=== PATIENT | female | born 1960 | race African-American/Black ===

== ENCOUNTER → 2017-04-02 10:27 | Outpatient (CLI) | payer MEDICARE, MEDICAID | END | disposition home or self-care (01) | LOC: D.MRI 10:27 | DX: M25.511 Pain in right shoulder (principal); M79.601 Pain in right arm ==

== ENCOUNTER → 2020-11-06 11:05 | Outpatient (CLI) | payer MEDICARE, MEDICAID ==
--- NOTE | 2020-11-06 14:41 | NUR ---
PATIENT GIVEN 10 ML MULTIHANCE FOR MRI LUMBAR SPINE W/WO CONTRAST. AFTER SCAN WAS COMPLETE WE ASKED PATIENT IF SHE WAS FEELING OK. SHE STATED YES AND IV WAS REMOVED. SHE THEN ASKED IF HER RT EYE LOOKED SWOLLEN BECAUSE IT FELT LIKE IT WAS EVER SINCE WE GAVE HER THE CONTRAST. WE THEN CALLED IVON VERDIN OUR RN TO COME AND EVALUATE HER AND ALSO DR GREEN RADIOLOGIST. HER RIGHT EYE WAS SLOWLY GETTING BIGGER IVON TRIED TO GET AN IV. DR GREEN ASKED US TO GIVE HER 125 MG OF SOLUMEDROL AND THEN LET HER GO TO THE ER TO BE EVALUATED AND WATCHED. PATIENT WAS TAKED TO THE ER BY NATASHA VIVEROS AND IVON VERDIN WHERE THE GOT AN IV THERE AND ANGIE THE PATIENT FINANCIAL COORDINATOR GAVE HER THE SOLUMEDROL. DR GREEN STATED HE WILL CALL THE ER AND TALK TO THE ER DOCTOR TO GIVE HIM AN UPDATE. AT 1435 NATASHA CHECKED ON THE PATIENT IN THE ER AND SHE WAS DOING BETTER AND SWELLING WAS GOING DOWN.
== END | disposition home or self-care (01) ==
LOC: D.MRI 11:00
PROVIDERS: ATTEND Specialist
DX: M51.36 Other intervertebral disc degeneration, lumbar region (principal)

== ENCOUNTER 2020-11-06 13:26 | Emergency (ER) | payer MEDICARE, MEDICAID ==
[~2020-11-06] VITALS: Ht 152.4 cm; Wt 54.5 kg
[2020-11-06 13:29] VITALS: Ht 152.4 cm; Wt 54.5 kg
== END 2020-11-06 14:55 | disposition home or self-care (01) ==
LOC: D.ER 13:26
DX: R06.02 Shortness of breath (principal); T50.8X5A Adverse effect of diagnostic agents, initial encounter; I10 Essential (primary) hypertension